=== PATIENT | male | born 1955 | race Caucasian/White ===

== ENCOUNTER 2018-04-03 20:42 | Observation (INO) | payer MEDICARE, OTHER ==
[~2018-04-03] VITALS: Ht 170.2 cm; Wt 72.7 kg
[2018-04-03] MEDS ORDERED: aspirin 81mg tab.chew PO ONE (20:45)
[2018-04-03 21:04] LABS: BASOPHILS # (AUTO) 0.1 X10'3 (0-0.2); BASOPHILS % (AUTO) 1.2 % (0-1); EOSINOPHILS # (AUTO) 0.1 X10'3 (0-0.9); EOSINOPHILS % (AUTO) 1.2 % (0-6); HEMATOCRIT 39.7 % (42.0-52.0); LYMPHOCYTES # (AUTO) 1.9 X10'3 (1.1-4.8); LYMPHOCYTES % (AUTO) 20.5 % (21-51); MEAN CORPUSCULAR HEMOGLOBIN 29.1 PG (27.0-31.0); MEAN CORPUSCULAR HGB CONC 35.3 % (33.0-36.5); MEAN CORPUSCULAR VOLUME 82.4 FL (78-98); MONOCYTES # (AUTO) 0.8 X10'3 (0-0.9); MONOCYTES % (AUTO) 8.3 % (2-12); NEUTROPHILS # (AUTO) 6.2 X10'3 (1.8-7.7); NEUTROPHILS % (AUTO) 68.8 % (42-75); PLATELET COUNT 292 X10'3 (140-440); RED BLOOD COUNT 4.82 X10'6 (4.70-6.10); RED CELL DISTRIBUTION WIDTH 14.7 % (11.5-14.5); WHITE BLOOD COUNT 9.1 X10'3 (4.5-11.0)
[2018-04-03 21:15] LABS: INR 1.1 INR; PARTIAL THROMBOPLASTIN TIME 26 SECONDS (22-32); PROTHROMBIN TIME 10.9 SECONDS (9.0-12.0)
[2018-04-03 21:19] LABS: ALANINE AMINOTRANSFERASE 26 U/L (12-78); ALBUMIN 3.5 G/DL (3.4-5.0); ALBUMIN/GLOBULIN RATIO 1.2 (1.1-1.5); ALKALINE PHOSPHATASE 81 IU/L (46-116); ANION GAP 9 (8-16); ASPARTATE AMINO TRANSFERASE 15 U/L (10-37); BILIRUBIN,TOTAL 0.6 MG/DL (0.1-1.0); BLOOD UREA NITROGEN 7 MG/DL (7-18); CALCIUM 8.3 MG/DL (8.5-10.1); CHLORIDE 103 MMOL/L (99-107); CREATININE 0.87 MG/DL (0.60-1.10); GLUCOSE 85 MG/DL (70-104); POTASSIUM 3.4 MMOL/L (3.5-5.1); SODIUM 137 MMOL/L (135-145); TOTAL CARBON DIOXIDE 25.4 MMOL/L (24-32); TOTAL PROTEIN 6.4 G/DL (6.4-8.2); eGFR 90 ML/MIN
[2018-04-03 22:00] LABS: D-DIMER 0.29 MG/L FEU (0-0.50)
[2018-04-03] MEDS ORDERED: hydrALAZINE 20mg/ml inj. IV ONE (22:20)
[2018-04-03] MEDS ORDERED: IBUP-1984 PO (22:51)
[2018-04-03] MEDS ORDERED: BUSP10TA11 PO (22:51)
[2018-04-03] MEDS ORDERED: ATOR40TA PO (22:51)
[2018-04-03] MEDS ORDERED: ASPI-1264 PO (22:51)
[2018-04-03] MEDS ORDERED: RISP2TAB3 PO (22:51)
[2018-04-03] MEDS ORDERED: METO1TAB12 PO (22:51)
[2018-04-03] MEDS ORDERED: AMLO2.5T2 PO (22:51)
[2018-04-03] MEDS ORDERED: TRAZ-218 PO (22:51)
[2018-04-03 23:00] LABS: URINE AMPHETAMINE SCREEN POSITIVE (Neg); URINE BARBITUATE SCREEN NEGATIVE (Neg); URINE BENZODIAZEPINES SCREEN NEGATIVE (Neg); URINE CANNABINOID SCREEN POSITIVE (Neg); URINE COCAINE SCREEN NEGATIVE (Neg); URINE METHADONE SCREEN NEGATIVE (Neg); URINE OPIATE SCREEN NEGATIVE (Neg); URINE PHENCYCLIDINE SCREEN NEGATIVE (Neg)
[2018-04-03] MEDS ORDERED: acetaminophen 325mg tablet PO PRN ×2 (23:30)
[2018-04-03] MEDS ORDERED: ondansetron/PF 4mg/2ml inj IV PRN (23:30)
[2018-04-03] MEDS ORDERED: magnesium hydroxide 30ml (MOM) UD suspension PO PRN (23:30)
[2018-04-03] MEDS ORDERED: mag hydrox/Alum hydrox/simeth 30ml oral suspension PO PRN (23:30)
[2018-04-03 23:36] LABS: CLARITY,URINE CLEAR (Clear); COLOR,URINE YELLOW (Yellow); GLUCOSE, URINE NEGATIVE (Neg); KETONES,URINE NEGATIVE (Neg); LEUKOCYTE ESTERASE ,URINE NEGATIVE (Neg); NITRITES, URINE NEGATIVE (Neg); OCCULT BLOOD,URINE NEGATIVE (Neg); PROTEIN,URINE NEGATIVE (Neg); UROBILINOGEN,URINE 0.2 E.U/dL (0.2-1.0)
[2018-04-03 23:38] LABS: UA COLLECTION TYPE CLN CATCH MIDSTREAM
[2018-04-03] MEDS: normal saline 1000ml 1,000 ML IV SCH (23:57)
[2018-04-04 00:45] VITALS: BP 184/115
[2018-04-04] MEDS ORDERED: nitroGLYCERIN 0.4mg/hour patch TD ONE (01:45)
[2018-04-04 03:00] VITALS: BP 170/108
[2018-04-04 03:18] LABS: BASOPHILS # (AUTO) 0.1 X10'3 (0-0.2); BASOPHILS % (AUTO) 0.9 % (0-1); EOSINOPHILS # (AUTO) 0.1 X10'3 (0-0.9); EOSINOPHILS % (AUTO) 1.5 % (0-6); HEMATOCRIT 42.9 % (42.0-52.0); LYMPHOCYTES # (AUTO) 2.2 X10'3 (1.1-4.8); LYMPHOCYTES % (AUTO) 23.2 % (21-51); MEAN CORPUSCULAR HEMOGLOBIN 29.2 PG (27.0-31.0); MEAN CORPUSCULAR HGB CONC 35.1 % (33.0-36.5); MEAN CORPUSCULAR VOLUME 83.1 FL (78-98); MEAN PLATELET VOLUME 7.2 FL (7.4-10.4); MONOCYTES # (AUTO) 0.7 X10'3 (0-0.9); MONOCYTES % (AUTO) 7.4 % (2-12); NEUTROPHILS # (AUTO) 6.3 X10'3 (1.8-7.7); PLATELET COUNT 303 X10'3 (140-440); RED BLOOD COUNT 5.16 X10'6 (4.70-6.10); RED CELL DISTRIBUTION WIDTH 14.8 % (11.5-14.5); WHITE BLOOD COUNT 9.4 X10'3 (4.5-11.0)
[2018-04-04 03:37] LABS: ALBUMIN 3.7 G/DL (3.4-5.0); ANION GAP 10 (8-16); BLOOD UREA NITROGEN 6 MG/DL (7-18); BUN/CREATININE RATIO 7.6 (5.4-32.0); CALCIUM 8.7 MG/DL (8.5-10.1); CHLORIDE 103 MMOL/L (99-107); CREATININE 0.79 MG/DL (0.60-1.10); GLUCOSE 88 MG/DL (70-104); POTASSIUM 3.4 MMOL/L (3.5-5.1); SODIUM 138 MMOL/L (135-145); TOTAL CARBON DIOXIDE 25.1 MMOL/L (24-32); eGFR > 90 ML/MIN
[2018-04-04 06:00] VITALS: BP 145/98
[2018-04-04] MEDS ORDERED: busPIRone 15mg tablet PO SCH (08:00)
[2018-04-04] MEDS ORDERED: HYDROCHLOROTHIAZIDE PO SCH (08:00)
[2018-04-04] MEDS ORDERED: nitroGLYCERIN 0.4mg/hour patch TD SCH (08:00)
[2018-04-04] MEDS ORDERED: aspirin 325mg tablet PO SCH (08:00)
[2018-04-04] MEDS ORDERED: metoprolol tartrate 50mg tablet PO SCH (08:00)
[2018-04-04] MEDS ORDERED: amLODIPine 2.5mg tablet PO SCH (08:00)
[2018-04-04] MEDS ORDERED: METOPROLOL PO SCH (08:00)
[2018-04-04] MEDS ORDERED: [UNRECOGNIZED DRUG - OTHER] PO SCH (08:00)
[2018-04-04] MEDS ORDERED: HYDROchlorothiazide 25mg tablet PO SCH (08:00)
[2018-04-04] MEDS: normal saline 1000ml 1,000 ML IV SCH (10:27)
[2018-04-04 11:00] VITALS: BP 147/94
[2018-04-04] MEDS ORDERED: potassium Cl 20 mEq SR tablet PO STA (12:05)
[2018-04-04] MEDS ORDERED: traZODone 50mg tablet PO SCH (21:00)
[2018-04-04] MEDS ORDERED: atorvastatin 20mg tablet PO SCH (21:00)
[2018-04-04] MEDS ORDERED: risperiDONE 2mg tablet PO SCH (21:00)
== END 2018-04-04 14:00 | disposition home or self-care (01) ==
LOC: ER 20:43 → ED HOLD 23:27 → PCU 3S 04-04 00:42
PROVIDERS: ADMIT Hospitalist; ATTEND Hospitalist
DX: I10 Essential (primary) hypertension (principal); F15.10 Other stimulant abuse, uncomplicated; F12.10 Cannabis abuse, uncomplicated; R53.83 Other fatigue; E78.00 Pure hypercholesterolemia, unspecified; F17.200 Nicotine dependence, unspecified, uncomplicated; I25.10 Atherosclerotic heart disease of native coronary artery without angina pectoris; Z95.5 Presence of coronary angioplasty implant and graft
CPT/HCPCS: 36415; 71045; 80048; 80053; 80305; 81003; 84484; 85025; 85379; 85610; 85730; 87070; 93005; 93306; 96361; 96374; 99285; G0378; J0360; J7030